=== PATIENT | male | born 1950 | race Two or more races ===

== ENCOUNTER → 2025-06-06 | Outpatient (CLI) | payer MEDICARE, SELFPAY ==
--- NOTE | 2025-06-06 | XR_ITS ---
Examination: Lumbar spine, 5 views Technique: Lumbar spine AP, lateral, coned lateral lower lumbar spine, bilateral obliques 5 views Exam date and time: June 06, 2025, 1208 hours INDICATION: Low back pain several years. FINDINGS: Significant osteopenia Moderate narrowing hip joints Diffuse advanced facet arthropathy Grade 1 anterolisthesis L4 on L5 Diffuse lumbar degenerative disc disease moderate to advanced L3-L4, L4-L5 IMPRESSION: Diffuse lumbar degenerative disc disease moderate to advanced L3-L4, L4-L5 No lumbar fracture
--- NOTE | 2025-06-06 | XR_ITS ---
EXAMINATION: Cervical spine, 5 views Technique: Cervical spine AP, AP odontoid, lateral, bilateral obliques, 5 views Exam date and time: June 06, 2025, 1208 hours INDICATIONS: Neck pain beginning several years ago FINDINGS: Satisfactory alignment cervical vertebral bodies No cervical fracture Intact odontoid Advanced degenerative disc disease C6-C7 with mild bilateral neuroforaminal stenosis Moderate cervical spondylosis IMPRESSION: Advanced degenerative disc disease C6-C7
== END | disposition home or self-care (01) ==
LOC: CDIM 11:07
PROVIDERS: PCP Family Medicine; Referring Provider Chiropractor; Visit Provider Chiropractor
DX: M50.323 Other cervical disc degeneration at C6-C7 level (principal); M51.360 Other intervertebral disc degeneration, lumbar region with discogenic back pain only
CPT/HCPCS: 72050; 72110